=== PATIENT | female | born 1995 | race Caucasian/White ===

== ENCOUNTER 2017-03-16 13:23 | Emergency (ER) | payer BC ==
[~2017-03-16] VITALS: Ht 154.9 cm; Wt 48.6 kg
[~2017-03-16 13:23] MED LIST: LTHSR450 PO; ZLF/50 PO
[2017-03-16 13:26] VITALS: TEMP 36.8; Ht 154.9 cm; Wt 48.6 kg
[2017-03-16 14:02] LABS: BASO % 0.6 %; BASO ABS # 0.03 K/uL (0-0.2); COMPLETE YES; HEMATOCRIT 39.1 % (37-47); IG% 0.2 %; LYMPH % 32.8 %; LYMPH ABS # 1.64 K/uL (1.2-3.4); MEAN CELL VOLUME 93.3 fL (80-100); MEAN CORPUSCULAR HEMOGLOBIN 29.8 pg (25-34); MEAN PLATELET VOLUME 10.3 fL (7.4-10.4); MONO % 8.8 %; NEUT % 54.6 %; PLATELET COUNT 340 K/uL (130-400); RED BLOOD COUNT 4.19 M/uL (4.2-5.4)
[2017-03-16 14:19] LABS: BUN/CREATININE RATIO 8.1 (10-20); CALCIUM 9.4 mg/dl (8.5-10.1); CREATININE 0.85 mg/dl (0.60-1.20); POTASSIUM 3.7 mmol/L (3.5-5.1)
[2017-03-16 14:30] LABS: ALB/GLOB RATIO 1.2 (0.9-2); THYROID STIMULATING HORMONE 2.22 uIu/ml (0.300-4.500)
[2017-03-16 14:34] LABS: ACETAMINOPHEN < 2 ug/ml (10-30)
[2017-03-16 15:01] LABS: URINE APPEARANCE CLEAR (CLEAR); URINE BILIRUBIN NEG (NEG); URINE COLOR YELLOW; URINE NITRITE NEG (NEG); URINE PH 8.5 (4.5-7.5); URINE SPECIFIC GRAVITY 1.006 (1.000-1.030); UROBILINOGEN NEG (NEG); ZZUR CULT IF INDIC CLEAN CATCH NO
[2017-03-16 15:05] LABS: MANUAL MICROSCOPIC REQUIRED? NO; REVIEW REQ? NO
[2017-03-16 15:13] LABS: PREG INTERNAL NEGATIVE QC NEG CLEAR BACKGROUND; PREG INTERNAL POSITIVE QC POS CONTROL LINE
[2017-03-16 15:19] LABS: BENZODIAZEPINE, URINE NEG (NEG); COCAINE,URINE NEG (NEG); PHENCYCLIDINE, URINE NEG (NEG)
[2017-03-16 16:17] VITALS: BP 98/60; PULSE 62; O2SAT 100
--- NOTE | 2017-03-16 18:00 | EMERGENCY ROOM VISIT NOTE ---
History Report prepared by Justino: Mireille Salinas Under the Supervision of: Dr. Mello Alberto M.D. First contact with patient: 14:51 Chief Complaint: MENTAL HEALTH EVALUATION Stated Complaint: SUICIDAL History of Present Illness The patient is a 22 year old female who presents to the Emergency Room with complaints of persistent suicidal thoughts starting yesterday. She was at the [facility] with her boyfriend and not having a good time when she remembered that she dislikes being in [place] and does not want to be there. She has had suicidal thoughts since. She denies having a plan. She returned home and cut herself. She has been cutting since she was 11. She was not drinking last night. She has had no prior suicide attempts. She is doing OK in school. She says she does not have any friends here besides her boyfriend. She denies any history of diabetes or hypertension. She is currently on her period. She had a cold a couple weeks ago, but is feeling better now. She denies any fever currently. She admits to marijuana use, but not recently. She states she is not currently suicidal. Source of History: patient Onset: yesterday Position: other (mental health) Quality: other (suicidal thoughts) Timing: other (persistent) Associated Symptoms: No fevers Review of Systems See HPI for pertinent positives & negatives. A total of 10 systems reviewed and were otherwise negative. Past Medical & Surgical Medical Problems: (1) Bipolar disorder (2) Depression Family History Patient reports no known family medical history. Social History Smoking Status: Current Some Day Smoker Alcohol Use: heavy Drug Use: marijuana Marital Status: in relationship Housing Status: lives with roommate Occupation Status: [employer] student Current/Historical Medications Scheduled [place] Carbonate ([place] Carbonate ER), 450 MG PO BID Sertraline HCl (Sertraline HCl), 50 MG PO DAILY Allergies Coded Allergies: No Known Allergies (Unverified , 03/16/17) Physical Exam Vital Signs Date Time Temp Pulse Resp B/P Pulse Ox O2 Delivery O2 Flow Rate FiO2 03/16/17 16:17 62 16 98/60 100 03/16/17 15:00 50 16 96/60 100 03/16/17 13:26 36.8 90 18 119/71 99 Room Air Physical Exam Constitutional: Vital signs reviewed. Eyes: Pupils are equal round reactive to light. Conjunctiva are noninjected. ENT: Pharynx is clear without erythema or exudate. Mucous membranes are moist. Neck supple without meningeal signs. Respiratory: Clear to auscultation bilaterally. Breath sounds are equal bilaterally. Cardiovascular: Regular rate and rhythm. No rubs or gallops. GI: Soft, nondistended and nontender. Bowel sounds are present. Musculoskeletal: No peripheral edema. No lower extremity tenderness. Superficial abrasions to the left volar wrist. No signs of cellulitis. Integumentary: No cyanosis. Neurological: The patient is awake and alert. No focal deficits. Psychiatric: Depressed affect, not tearful or manic. Medical Decision & Procedures Laboratory Results 03/16/17 13:50 Red Blood Count 4.19, Mean Corpuscular Volume 93.3, Mean Corpuscular Hemoglobin 29.8, Mean Corpuscular Hemoglobin Concent 32.0, Mean Platelet Volume 10.3, Neutrophils (%) (Auto) 54.6, Lymphocytes (%) (Auto) 32.8, Monocytes (%) (Auto) 8.8, Eosinophils (%) (Auto) 3.0, Basophils (%) (Auto) 0.6, Neutrophils # (Auto) 2.73, Lymphocytes # (Auto) 1.64, Monocytes # (Auto) 0.44, Eosinophils # (Auto) 0.15, Basophils # (Auto) 0.03 03/16/17 13:50 Test 03/16/17 13:50 03/16/17 14:25 White Blood Count 5.00 K/uL (4.8-10.8) Red Blood Count 4.19 M/uL (4.2-5.4) Hemoglobin 12.5 g/dL (12.0-16.0) Hematocrit 39.1 % (37-47) Mean Corpuscular Volume 93.3 fL (80-100) Mean Corpuscular Hemoglobin 29.8 pg (25-34) Mean Corpuscular Hemoglobin Concent 32.0 g/dl (32-36) Platelet Count 340 K/uL (130-400) Mean Platelet Volume 10.3 fL (7.4-10.4) Neutrophils (%) (Auto) 54.6 % Lymphocytes (%) (Auto) 32.8 % Monocytes (%) (Auto) 8.8 % Eosinophils (%) (Auto) 3.0 % Basophils (%) (Auto) 0.6 % Neutrophils # (Auto) 2.73 K/uL (1.4-6.5) Lymphocytes # (Auto) 1.64 K/uL (1.2-3.4) Monocytes # (Auto) 0.44 K/uL (0.11-0.59) Eosinophils # (Auto) 0.15 K/uL (0-0.5) Basophils # (Auto) 0.03 K/uL (0-0.2) RDW Standard Deviation 49.3 fL (36.4-46.3) RDW Coefficient of Variation 14.4 % (11.5-14.5) Immature Granulocyte % (Auto) 0.2 % Immature Granulocyte # (Auto) 0.01 K/uL (0.00-0.02) Anion Gap 7.0 mmol/L (3-11) Est Creatinine Clear Calc Drug Dose 77.6 ml/min Estimated GFR () 111.9 Estimated GFR (Non- 96.6 BUN/Creatinine Ratio 8.1 (10-20) Calcium Level 9.4 mg/dl (8.5-10.1) Total Bilirubin 0.3 mg/dl (0.2-1) Aspartate Amino Transf (AST/SGOT) 22 U/L (15-37) Alanine Aminotransferase (ALT/SGPT) 29 U/L (12-78) Alkaline Phosphatase 72 U/L (45-117) Total Protein 8.0 gm/dl (6.4-8.2) Albumin 4.3 gm/dl (3.4-5.0) Globulin 3.7 gm/dl (2.5-4.0) Albumin/Globulin Ratio 1.2 (0.9-2) Thyroid Stimulating Hormone (TSH) 2.220 uIu/ml (0.300-4.500) Salicylates Level < 1.7 mg/dl (2.8-20) Acetaminophen Level < 2 ug/ml (10-30) Ethyl Alcohol mg/dL < 3.0 mg/dl (0-3) Urine Color YELLOW Urine Appearance CLEAR (CLEAR) Urine pH 8.5 (4.5-7.5) Urine Specific [place] 1.006 (1.000-1.030) Urine Protein NEG (NEG) Urine Glucose (UA) NEG (NEG) Urine Ketones NEG (NEG) Urine Occult Blood TRACE (NEG) Urine Nitrite NEG (NEG) Urine Bilirubin NEG (NEG) Urine Urobilinogen NEG (NEG) Urine Leukocyte Esterase NEG (NEG) Urine WBC (Auto) 0 /hpf (0-5) Urine RBC (Auto) 0-4 /hpf (0-4) Urine Hyaline Casts (Auto) 0 /lpf (0-5) Urine Epithelial Cells (Auto) 10-20 /lpf (0-5) Urine Bacteria (Auto) NEG (NEG) Urine Test NEG (NEG) Urine Opiates Screen NEG (NEG) Urine Methadone, Qualitative NEG (NEG) Urine Barbiturates NEG (NEG) Urine Phencyclidine (PCP) Level NEG (NEG) Ur Amphetamine/Methamphetamine NEG (NEG) MDMA (Ecstasy) Screen NEG (NEG) Urine Benzodiazepines Screen NEG (NEG) Urine Cocaine Metabolite NEG (NEG) Urine Marijuana (THC) POS (NEG) Laboratory results as reviewed by me. ED Course 1453: The patient was evaluated in room A6. A complete history and physical exam was performed. 1610: The mental health case loader operator has informed me that the patient has scored low on the suicide risk scale. She believes there is no need for inpatient treatment. She has an appointment with her therapist tomorrow and she will stay in her hometown [facility]. 1613: I reevaluated the patient. She is feeling much better after talking to people. She does not appear depressed on examination. She will follow up with her therapist tomorrow. She feels good about going home. I discussed with her the results and treatment plan. She verbalized understanding and agreement. She was discharged home. Medical Decision This is a 22-year-old female presents for mental health evaluation. I did perform a limited focused review of portions of the patient's old chart on the electronic medical record. The patient was admitted in 2014 for bipolar disorder and anxiety. She was here for alcohol overdose in November 2016. I did evaluate the patient as noted above. Patient is presenting with suicidal ideation and increased depression since yesterday. Currently she states she is not suicidal. I did personally review the patient's urine drug screen as described above. She is not . I did review the patient's blood work as noted in the electronic medical record. I did medically clear the patient. The patient was evaluated by the mental health patient case coordinator. She felt that the patient did not require inpatient psychiatric care. I did reassess the patient. She is feeling much better at this time. She states that talking helped her significantly and she will follow up with her therapist tomorrow. The patient was discharged in good condition. She will stay with her family tonight. Impression Primary Impression: Mood disorder Additional Impression: Suicidal ideation Scribe Attestation The scribe's documentation has been prepared under my direct and personally reviewed by me in its entirety. I confirm that the note above accurately reflects all work, treatment, procedures, and medical decision making performed by me. Departure Information Dispostion Home / Self-Care Referrals [facility] (PCP) Forms HOME CARE DOCUMENTATION FORM, IMPORTANT VISIT INFORMATION Patient Instructions ED Depression, My [facility] Additional Instructions You have been examined and treated today on an emergency basis only. This is not a substitute for, or an effort to provide, complete comprehensive medical care. It is impossible to recognize and treat all injuries or illnesses in a single emergency department visit. It is therefore important that you follow up closely with your counselor tomorrow per your appointment. Return for worsening symptoms or if you develop any other concerning symptoms. Problem Qualifiers
[2017-03-21 09:33] LABS: SYNTHETIC CANNABINOIDS QL URIN NEGATIVE (Negative)
== END 2017-03-16 16:30 | disposition home or self-care (01) ==
LOC: C.EDB 13:24 → C.EDA 16:30
DX: F39 Unspecified mood [affective] disorder (principal); R45.851 Suicidal ideations; F17.200 Nicotine dependence, unspecified, uncomplicated; Z79.899 Other long term (current) drug therapy